=== PATIENT | male | born 1940 | race Caucasian/White ===

== ENCOUNTER 2019-02-07 11:04 | Outpatient (RCR) | payer OTHER, SELFPAY ==
--- NOTE | 2019-02-07 13:45 | ST.OPIE ---
Provider Information Visit Care Team Role Provider Type Yusuf David Attending Provider Non-Staff Specialty: Medical Address: [address] [place] [address], [place], [address] Email: Speech-Language Pathology Initial Evaluation ELL TUTOR Voice Resonance Evaluation Start: 02/07/19 13:15 Freq: Status: Active Protocol: Document 02/07/19 13:15 LNK (Rec: 02/07/19 13:41 LNK [id number]) Voice and Resonance Assessment Session Time Visit Start Time 11:30 Visit Stop Time 12:30 Total Visit Minutes 60 Visit Information Insurance Information [facility] Choice/ Next Note Type Next Note Type Re-Evaluation Referral Referring Physician Dr. Yusuf David Reason for Referral hoarseness Setting Setting Outpatient Care Patient History General Information Pt is a 78 year old male who presented for a vocal assessment. He has a history of 50 year smoking 1-2 packs of cigarettes a day. Pt reported that he has not seen a physician in over 50 years. He was accompanied to this evaluation by his sister, Amparo Styles. Both the pt and his sister noted that the pt's voice became very hoarse approximately 6 months ago. She had been encouraging the pt to get an assessment for several months. Previous Therapy Previous Speech-Language Therapy No Oral Motor Assessment Source: [employer] ([facility]). Oral-Motor Assessment informal OM examination indicated missing teeth, but other structures appeared to be WFL. - Laryngeal Performance S/Z Ratio Reduced Laryngeal Function Relative to Yes: Pt unable to sustain Respiration phonation longer that 5-6 seconds Maximum Phonation Time MPT Norms: Women (15-25) Men (25-35) Loudness (50-60 dB); Speaking Rate: Oral Reading of Sentences (190 Words Per Minute); Oral Reading of Paragraphs (160-170 WPM); Speaking Rate in Conversation (150-250 WPM) Maximum Phonation Time 6.2 Maximum Phonation Time Reduced Jitter/Shimmer Norms: Jitter (Less than or equal to 1.040% - Frequency) Norms: Shimmer (Less than or equal to 3.810% - Amplitude) Jitter 9.8 Shimmer 27.8 Voice Pitch Range Norms: Women (100-300 Hz) Men (70-250 Hz) Fundamental Frequency Norms: Women (Mean: 225 Hz; Range: 155-334 Hz) Men ( Mean: 128 Hz; Range: 85-196 Hz) Voice Pitch Severely Low Voice Loudness Moderately Loud Voice Phonatory-based Quality Strident Loss of Voice Fundamental Frequency unable to assess. Minimal to no phonatory quality Paradoxical Vocal Fold Movement No Indications Findings Findings Severe Impairment Observations Pt presented with a severely disordered vocal quality, air support for voicing, and significantly disordered vocal fold vibration he had no phonatory quality. His voice was like s low growl. The pt had seen Dr. David via telemedical visit with the MA. Dr. David recommended that the pt see an ENT to rule out malignancy. Instead he was referred fro voice evaluation. This ELL TUTOR strongly recommends that the pt be referred to an ENT MABLE in order to determine the nature of the pt's vocal system snd to r/o malignancy. Prognosis Rehabilitation Potential Fair - Recommendations Treatment Recommended No: Pt needs to see ENT before treatment can be determined Referrals Referrals ENT Patient/Caregiver Education Patient/Family Education Described results of evaluation Patient Understanding Family Understanding Vocally Abusive Behavior Behavior Rating Smoking Always
--- NOTE | 2019-04-05 16:27 | ST.OPDS ---
Care Team Visit Care Team Role Provider Type Yusuf David Attending Provider Non-Staff Address: [address] [place] [address], [place], [address] [facility]TACT CENTER SPECIALIST Treatment Note CONTACT CENTER SPECIALIST Treatment Note Start: 02/07/19 13:15 Freq: Status: Active Protocol: Document 04/05/19 16:23 LNK (Rec: 04/05/19 16:26 LNK [id number]) Speech Pathology Treatment Note Visit Type Note Type Discharge Summary General Information General Information Pt is a 78 year old male whe presented for a vocal assessment. He has a history of 50 year smoking 1-2 packs of cigarettes a day. Pt reported that he has not seen a physician in over 50 years. He was accompanied to this evaluation by his sister, Amparo Styles. Both the pt and his sister noted that the pt's voice became very hoarse approximately 6 months ago. She had been encouraging the pt to get an assessment for several months. [ E Subjective Observations/Patient Presentation Pt presented with a severely disordered vocal quality, air support vor voicing, and significantly disordered vocal fold vibration he had no phonatory quality. His voice was like s low growl. The pt had seen Dr. David via telemedical visit with the [place]. Dr. David recommended that the pt see an ENT to rule out malignancy. Insted he was referred fro voice evaluation. This CONTACT CENTER SPECIALIST strongly recommends that the pt be referred to an ENT MABLE in order to determine the nature of the pt's vocal system snd to r/o malignancy. [ End ] Chief Complaint(s) Voice Assessment Assessment of Improvement pt was not seen for therapy following the initial evaluation. Plan Therapy Recommendations Discharge from Speech Therapy
== END 2019-02-08 12:08 ==
LOC: SP 11:04
PROVIDERS: Visit Provider Registered Nurse
DX: R49.0 Dysphonia (principal)
CPT/HCPCS: 92524

== ENCOUNTER 2019-02-11 09:22 | Emergency (ER) | payer MEDICARE, SELFPAY ==
[2019-02-11 09:30] VITALS: BP 143/55; PULSE 61; RESP 22; TEMP 36.4; O2SAT 99; BMI 25.1
--- NOTE | 2019-02-11 10:22 | DI.RAD.S_ITS ---
PROCEDURE: XR CHEST 2V INDICATIONS: voice changes, fullness in neck, gradual, wheezing TECHNIQUE: 2 views of the chest were acquired. COMPARISON: None. FINDINGS: Surgical changes and devices: None. Lungs and pleura: Lungs are clear. No pleural effusions or pneumothorax. Mediastinum: Mediastinal contours are normal. Heart size is normal. Bones and chest wall: No suspicious bony abnormalities. Soft tissues appear unremarkable. IMPRESSION: No acute cardiopulmonary findings. Dictated by: Eden Fuentes M.D. on 02/11/2019 at 11:04 Approved by: Eden Fuentes M.D. on 02/11/2019 at 11:04
--- NOTE | 2019-02-11 10:24 | ED.SOB ---
HPI - SOB/Dyspnea General Chief Complaint: Shortness of Breath/Dyspnea Stated Complaint: Throat is closing up on him,wheezing Time Seen by Provider: 02/11/19 10:06 Source: patient and family (Sister) Mode of arrival: ambulatory Limitations: no limitations History of Present Illness This is a 78-year-old male comes to the emergency department with complaint of his throat feeling like it will sometimes close up, he will be wheezing. Patient states that his voice has been hoarse, it has been a gradual onset. There was not a sudden abrupt onset. It has been like that for months to a year. He does state there feels like there is a fullness or something in there. He does not have any difficulty with swallowing food or liquids. He states sometimes he will feel more short of breath or like his throat is closing off if he lays back. Patient states that sometimes he will feel sort of wheezy. He feels like it is more up in his throat although sometimes a little bit in his upper chest. Patient was also complaining of little bit ear pain for 2 weeks, he has been putting some ear drops in it. Patient is not having any other chest pain, no dizziness, no passing out, no nausea, no vomiting, no other GI or urinary symptoms. He has not had any weight loss. He does have a strong family history of his mom dying from cancer on his vocal cords , and his father had a cancer that required removal of his nose. Related Data Allergies Allergy/AdvReac Type Severity Reaction Status Date / Time pollen extracts AdvReac Mild Verified 11/12/18 13:09 Review of Systems Review of Systems ROS Unobtainable: All systems reviewed & are unremarkable except as noted in HPI and below Constitutional Denies chills, Denies fever(s), Denies headache(s), Denies lethargy, Denies night sweats, Denies poor appetite, Denies weakness and Denies weight loss ENT Ears, Nose, Mouth, and Throat: Reports as per HPI, Denies dental pain, Denies dizziness, Denies ear discharge, Reports otalgia (right ear, on abx drops), Denies headache(s), Reports hoarseness, Denies mouth lesions, Denies mouth pain, Denies nasal congestion, Reports neck mass (fullness, no mass), Denies neck pain, Denies odynophagia, Denies sore throat, Denies throat swelling, Denies tongue swelling and Reports other (wheezing feels like from throat.) Cardiovascular Denies chest pain, Denies syncope, Denies edema, Denies irregular heart rhythm, Denies lightheadedness, Denies palpitations, Denies dyspnea on exertion and Denies orthopnea Respiratory Denies change in phlegm color, Denies chest congestion, Denies cough, Denies excessive phlegm production, Denies pain on inspiration, Denies pain with cough, Denies dyspnea on exertion, Reports stridor and Denies wheezing Gastrointestinal Gastrointestinal: Denies abdominal pain, Denies melena, Denies hematochezia, Denies diarrhea, Denies nausea, Denies odynophagia and Denies vomiting Genitourinary Denies hematuria, Denies dysuria, Denies flank pain, Denies urinary frequency and Denies urinary urgency Musculoskeletal Denies neck pain Integumentary/Breasts Denies rash Neurologic Denies dizziness, Denies syncope, Denies headache(s) and Denies weakness Endocrine Denies palpitations Allergic/Immunologic Denies throat swelling, Denies tongue swelling and Denies wheezing PFSH Social History Smoking Status: Former smoker Family History Mother No problems noted. Father No problems noted. Social History Smoking Status: Former smoker Exam Narrative Exam Narrative: GEN: well nourished, well appearing male, alert and oriented x 3, patient appears to be in no acute distress. HEENT: Atraumatic, pupils are equal round reactive to light, extraocular movements are intact, nares are clear, TMs are clear with no fluid on the left, right has a small amount of left over cotton, unable to visualize the TM but canal appears normal, there is no conjunctival pallor. Throat is clear without any exudates, erythema, tonsillar enlargement or uvular deviation, no obvious visualize neck masses, patient does have a hoarse gravelly voice, he did remove his dentures and does not have any changes to the soft palate or other tissue changes. Patient handling secretions without issue. HEART: Regular rate and rhythm without murmur, clicks, rubs. LUNGS:Lungs clear to auscultation, no wheezes, rales, crackles, chest moves symmetrically, no wheezing, no stridor try potting. ABD:bowel sounds normal, soft, non-tender, no guarding, rebound, rigidity, no masses noted, no hepatosplenomegaly MSCL: Non-tender, no muscle atrophy, muscles strength 5/5 upper and lower extremities, full range of motion, normal gait NEURO:CN 2-12 intact, sensation normal Initial Vital Signs Initial Vital Signs: Vital Signs Temperature 97.6 F 02/11/19 09:30 Pulse Rate 61 02/11/19 09:30 Respiratory Rate 22 02/11/19 09:30 Blood Pressure 143/55 H 02/11/19 09:30 Pulse Oximetry 99 02/11/19 09:30 Course Orders Ordered: ED Orders 02/11/19 10:44 CT soft tissue neck w con Stat Vital Signs - 8 hr 02/11/19 12:01 Pulse Rate 63 Respiratory Rate 17 Blood Pressure [Left Arm] 138/70 Pulse Oximetry 100 MDM - SOB/Dyspnea Lab Data Attestation: I reviewed the patient's lab results. Result diagrams: 02/11/19 09:30 02/11/19 09:30 Lab Results 02/11/19 02/11/19 Range/Units 09:30 09:30 WBC 8.8 (4.5-11.0) X10^3/uL RBC 4.83 (4.5-5.9) X10^6/uL Hgb 14.7 (13.5-17.5) g/dL Hct 43.4 (41-53) % MCV 89.9 (80-100) fL MCH 30.4 (26-34) PG MCHC 33.8 (30-36) % RDW 14.3 (11.6-14.8) % Plt Count 229 (150-400) X10^3/uL Neut % (Auto) 56.4 (50-75) % Lymph % (Auto) 33.0 (25-40) % [place] % (Auto) 7.9 (3-14) % Eos % (Auto) 1.0 L (2-4) % Baso % (Auto) 1.7 (0-2) % Neut # (Auto) 4900 (0978-4275) /uL Lymph # (Auto) 2900 (6590-1849) /uL [place] # (Auto) 700 (0-900) /uL Eos # (Auto) 100 (0-450) /uL Baso # (Auto) 200 H (0-100) /uL Sodium 142 (137-145) mmol/L Potassium 3.9 (3.4-5.1) mmol/L Chloride 103 (98-107) mmol/L Carbon Dioxide 30 (22-32) mmol/L BUN 13 (9-20) mg/dL Creatinine 1.00 (0.66-1.25) mg/dL Estimated GFR > 60.0 (>60) mL/min BUN/Creatinine Ratio 13.0 (6-22) Glucose 91 (80-110) mg/dL Calcium 9.5 (8.4-10.2) mg/dL Imaging Data CT neck soft tissue: Radiologist's impression: Joon Ervin 78 M 1940 [place] [address] CT Scan Report Signed Patient: Joon Ervin WMR#: [id number] : 1940cct:[id number] Age/Sex: 78 / MDate of Service: 02/11/19 Loc: ED Accession Number: [id number] Procedure: CT soft tissue neck w con Ordering Provider: Lucie Mota D.O. PROCEDURE: CT SOFT TISSUE NECK W CON INDICATIONS: voice change, hoarse, wheeze, fullness neck TECHNIQUE: After the administration of intravenous contrast, 3.0 mm axial sections acquired from the skull base to the upper chest. Additional 1.5 mm axial sections acquired through the true vocal cords. 1 mm thick coronal reformats were generated. For radiation dose reduction, the following was used: automated exposure control. COMPARISON: None. FINDINGS: Image quality: Excellent. 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 There is associated destruction of the arytenoid cartilage to the right of midline. There is narrowing and deviation of the airway to the left. The mass measures approximately 3.7 x 1.8 x 2.6 cm. No other neck masses. Lymph nodes: No enlarged lymph nodes seen throughout the neck. 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 Other vessels are widely patent. Glands: The parotid and submandibular glands appear normal. Thyroid gland is unremarkable. Miscellaneous: Visualized brain and orbits appear unremarkable. Lung apices appear clear. Superficial soft tissues appear normal. Bones: No suspicious bony lesions. Visualized sinuses and mastoids appear unremarkable. IMPRESSION: 1. 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 2. No evidence of lymphadenopathy. Comment: Lines were discussed with Dr. Mota of the emergency department at time of study dictation. Dictated by: Jung Orozco M.D. on 02/11/2019 at 11:00 Approved by: Jung Orozco M.D. on 02/11/2019 at 11:17 Chest x-ray: Radiologist's impression: [place] [address] XRay Report Signed Patient: Joon Ervin WMR#: [id number] : 3Acct:[id number] Age/Sex: 78 / MDate of Service: 02/11/19 Loc: ED Accession Number: [id number] Procedure: XR chest 2V Ordering Provider: Lucie Mota D.O. PROCEDURE: XR CHEST 2V INDICATIONS: voice changes, fullness in neck, gradual, wheezing TECHNIQUE: 2 views of the chest were acquired. COMPARISON: None. FINDINGS: Surgical changes and devices: None. Lungs and pleura: Lungs are clear. No pleural effusions or pneumothorax. Mediastinum: Mediastinal contours are normal. Heart size is normal. Bones and chest wall: No suspicious bony abnormalities. Soft tissues appear unremarkable. IMPRESSION: No acute cardiopulmonary findings. Dictated by: Eden Fuentes M.D. on 02/11/2019 at 11:04 Approved by: Eden Fuentes M.D. on 02/11/2019 at 11:04 [facility] Narrative Medical decision making narrative: Based on patient's history did get a chest x-ray but also discussed doing a CT of the neck is patient has had slowly increasing hoarseness with no acute onset. Discussed potential for cancer although other causes such as vocal cord dysfunction or other nerve, neurologic issues could be at play. By patient's description he does not any difficulty with swallowing or GI issues so I suspect it is more related to his airway. Spoke with Dr. Ghassan Raman/Jin, he would like to see patient this week. Set up with office staff so patient can have appointment scheduled. I s Discharge Plan Departure Patient Disposition: Home Clinical Impression: Laryngeal mass, Hoarseness of voice Discharge Date/Time: 02/11/19 12:21 Interventions: ED Discharge Assessment Last Done: 02/11/19 12:21 Instructions: Laryngeal Cancer Activity Restrictions/Additional Instructions: Follow up at your scheduled appointment on02/17/19 at 10:[address] Raman at [address] [place] [address] in [place] with the ENT (ears, nose, throat) surgeon. I also recommend that he get set up with a dedicated primary care physician, the health human resources operations specialist number is [phone] it can help me find a primary care physician Continue with smoking cessation. Return to the ER if you are having fevers greater than 100.4 F new stridor, difficulty breathing, wheezing, if you are having any difficulty swallowing, lightheadedness, passing out, shortness of breath or other new or concerning symptoms. Referrals: Allan Raman MD [Physician] -
[2019-02-11 10:32] LABS: Add Manual Diff / Slide Review NO; Basophils Absolute Auto 200 /uL (0-100); Basophils Percent Auto 1.7 % (0-2); Eosinophils Absolute Auto 100 /uL (0-450); Hematocrit 43.4 % (41-53); Hemoglobin 14.7 g/dL (13.5-17.5); Lymphocytes Absolute Auto 2900 /uL (1100-4500); Mean Corpuscular HGB Conc 33.8 % (30-36); Mean Corpuscular Hemoglobin 30.4 PG (26-34); Mean Corpuscular Volume 89.9 fL (80-100); Monocytes Absolute Auto 700 /uL (0-900); Monocytes Percent Auto 7.9 % (3-14); Neutrophils Absolute Auto 4900 /uL (1500-7000); Neutrophils Percent Auto 56.4 % (50-75); Platelet Count 229 X10^3/uL (150-400); Red Blood Cell Count 4.83 X10^6/uL (4.5-5.9); Red Cell Distribution Width 14.3 % (11.6-14.8); White Blood Cell Count 8.8 X10^3/uL (4.5-11.0)
--- NOTE | 2019-02-11 10:33 | ED_ITS ---
HPI - SOB/Dyspnea General Chief Complaint: Shortness of Breath/Dyspnea Stated Complaint: Throat is closing up on him,wheezing Time Seen by Provider: 02/11/19 10:06 Source: patient and family (Sister) Mode of arrival: ambulatory Limitations: no limitations History of Present Illness This is a 78-year-old male comes to the emergency department with complaint of his throat feeling like it will sometimes close up, he will be wheezing. Patie nt states that his voice has been hoarse, it has been a gradual onset. There was not a sudden abrupt onset. It has been like that for months to a year. He does state there feels like there is a fullness or something in there. He does not have any difficulty with swallowing food or liquids. He states sometimes he will feel more short of breath or like his throat is closing off if he lays back. Patient states that sometimes he will feel sort of wheezy. He feels like it is more up in his throat although sometimes a little bit in his upper chest. Patient was also complaining of little bit ear pain for 2 weeks, he has been putting some ear drops in it. Patient is not having any other chest pain, no dizziness, no passing out, no nausea, no vomiting, no other GI or urinary symptoms. He has not had any weight loss. He does have a strong family history of his mom dying from cancer on his vocal cords , and his father had a cancer that required removal of his nose. Related Data Allergies Allergy/AdvReac Type Severity Reaction Status Date / Time pollen extracts AdvReac Mild Verified 11/12/18 13:09 Review of Systems Review of Systems ROS Unobtainable: All systems reviewed & are unremarkable except as noted in HPI and below Constitutional Denies chills, Denies fever(s), Denies headache(s), Denies lethargy, Denies night sweats, Denies poor appetite, Denies weakness and Denies weight loss ENT Ears, Nose, Mouth, and Throat: Reports as per HPI, Denies dental pain, Denies dizziness, Denies ear discharge, Reports otalgia (right ear, on abx drops), Denies headache(s), Reports hoarseness, Denies mouth lesions, Denies mouth pain, Denies nasal congestion, Reports neck mass (fullness, no mass), Denies neck pain, Denies odynophagia, Denies sore throat, Denies throat swelling, Denies ton jimmie swelling and Reports other (wheezing feels like from throat.) Cardiovascular Denies chest pain, Denies syncope, Denies edema, Denies irregular heart rhythm, Denies lightheadedness, Denies palpitations, Denies dyspnea on exertion and Denies orthopnea Respiratory Denies change in phlegm color, Denies chest congestion, Denies cough, Denies excessive phlegm production, Denies pain on inspiration, Denies pain with cough, Denies dyspnea on exertion, Reports stridor and Denies wheezing Gastrointestinal Gastrointestinal: Denies abdominal pain, Denies melena, Denies hematochezia, Den ies diarrhea, Denies nausea, Denies odynophagia and Denies vomiting Genitourinary Denies hematuria, Denies dysuria, Denies flank pain, Denies urinary frequency and Denies urinary urgency Musculoskeletal Denies neck pain Integumentary/Breasts Denies rash Neurologic Denies dizziness, Denies syncope, Denies headache(s) and Denies weakness Endocrine Denies palpitations Allergic/Immunologic Denies throat swelling, Denies tongue swelling and Denies wheezing PFSH Social History Smoking Status: Former smoker Family History Mother No problems noted. Father No problems noted. Social History Smoking Status: Former smoker Exam Narrative Exam Narrative: GEN: well nourished, well appearing male, alert and oriented x 3, patient appears to be in no acute distress. HEENT: Atraumatic, pupils are equal round reactive to light, extraocular movements are intact, nares are clear, TMs are clear with no fluid on the left, right has a small amount of left over cotton, unable to visualize the TM but canal appears normal, there is no conjunctival pallor. Throat is clear without any exudates, erythema, tonsillar enlargement or uvular deviation, no obvious visualize neck masses, patient does have a hoarse gravelly voice, he did remove his dentures and does not have any changes to the soft palate or other tissue changes. Patient handling secretions without issue. HEART: Regular rate and rhythm without murmur, clicks, rubs. LUNGS:Lungs clear to auscultation, no wheezes, rales, crackles, chest moves symmetrically, no wheezing, no stridor try potting. ABD:bowel sounds normal, soft, non-tender, no guarding, rebound, rigidity, no masses noted, no hepatosplenomegaly MSCL: Non-tender, no muscle atrophy, muscles strength 5/5 upper and lower extremities, full range of motion, normal gait NEURO:CN 2-12 intact, sensation normal Initial Vital Signs Initial Vital Signs: Vital Signs Temperature 97.6 F 02/11/19 09:30 Pulse Rate 61 02/11/19 09:30 Respiratory Rate 22 02/11/19 09:30 Blood Pressure 143/55 H 02/11/19 09:30 Pulse Oximetry 99 02/11/19 09:30 Course Orders Ordered: ED Orders 02/11/19 10:44 CT soft tissue neck w con Stat Vital Signs - 8 hr 02/11/19 12:01 Pulse Rate 63 Respiratory Rate 17 Blood Pressure [Left Arm] 138/70 Pulse Oximetry 100 MDM - SOB/Dyspnea Lab Data Attestation: I reviewed the patient's lab results. Result diagrams: 02/11/19 09:30 02/11/19 09:30 Lab Results 02/11/19 02/11/19 Range/Units 09:30 09:30 WBC 8.8 (4.5-11.0) X10^3/uL RBC 4.83 (4.5-5.9) X10^6/uL Hgb 14.7 (13.5-17.5) g/dL Hct 43.4 (41-53) % MCV 89.9 (80-100) fL MCH 30.4 (26-34) PG MCHC 33.8 (30-36) % RDW 14.3 (11.6-14.8) % Plt Count 229 (150-400) X10^3/uL Neut % (Auto) 56.4 (50-75) % Lymph % (Auto) 33.0 (25-40) % Cross % (Auto) 7.9 (3-14) % Eos % (Auto) 1.0 L (2-4) % Baso % (Auto) 1.7 (0-2) % Neut # (Auto) 4900 (1262-9227) /uL Lymph # (Auto) 2900 (2954-8302) /uL Cross # (Auto) 700 (0-900) /uL Eos # (Auto) 100 (0-450) /uL Baso # (Auto) 200 H (0-100) /uL Sodium 142 (137-145) mmol/L Potassium 3.9 (3.4-5.1) mmol/L Chloride 103 (98-107) mmol/L Carbon Dioxide 30 (22-32) mmol/L BUN 13 (9-20) mg/dL Creatinine 1.00 (0.66-1.25) mg/dL Estimated GFR > 60.0 (>60) mL/min BUN/Creatinine Ratio 13.0 (6-22) Glucose 91 (80-110) mg/dL Calcium 9.5 (8.4-10.2) mg/dL Imaging Data CT neck soft tissue: Radiologist's impression: Joon Ervin 78 M 1940 [place] [address] CT Scan Report Signed Patient: Joon Ervin WMR#: [id number] : [id number]:[id number] Age/Sex: 78 / MDate of Service: 02/11/19 Loc: ED Accession Number: [id number] Procedure: CT soft tissue neck w con Ordering Provider: Lucie Mota D.O. PROCEDURE: CT SOFT TISSUE NECK W CON INDICATIONS: voice change, hoarse, wheeze, fullness neck TECHNIQUE: After the administration of intravenous contrast, 3.0 mm axial sections acquired from the skull base to the upper chest. Additional 1.5 mm axial sections acquired through the true vocal cords. 1 mm thick coronal reformats were generated. For radiation dose reduction, the following was used: automated exposure control. COMPARISON: None. FINDINGS: Image quality: Excellent. 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 There is associated destruction of the arytenoid cartilage to the right of midline. There is narrowing and deviation of the airway to the left. The mass measures approximately 3.7 x 1.8 x 2.6 cm. No other neck masses. Lymph nodes: No enlarged lymph nodes seen throughout the neck. 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 Other vessels are widely patent. Glands: The parotid and submandibular glands appear normal. Thyroid gland is unremarkable. Miscellaneous: Visualized brain and orbits appear unremarkable. Lung apices appear clear. Superficial soft tissues appear normal. Bones: No suspicious bony lesions. Visualized sinuses and mastoids appear unremarkable. IMPRESSION: 1. 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 2. No evidence of lymphadenopathy. Comment: Lines were discussed with Dr. Mota of the emergency department at time of study dictation. Dictated by: Jung Orozco M.D. on 02/11/2019 at 11:00 Approved by: Jung Orozco M.D. on 02/11/2019 at 11:17 Chest x-ray: Radiologist's impression: [address] [address] XRay Report Signed Patient: Joon Ervin WMR#: [id number] : 3Acct:[id number] Age/Sex: 78 / MDate of Service: 02/11/19 Loc: ED Accession Number: [id number] Procedure: XR chest 2V Ordering Provider: Lucie Mota D.O. PROCEDURE: XR CHEST 2V INDICATIONS: voice changes, fullness in neck, gradual, wheezing TECHNIQUE: 2 views of the chest were acquired. COMPARISON: None. FINDINGS: Surgical changes and devices: None. Lungs and pleura: Lungs are clear. No pleural effusions or pneumothorax. Mediastinum: Mediastinal contours are normal. Heart size is normal. Bones and chest wall: No suspicious bony abnormalities. Soft tissues appear unremarkable. IMPRESSION: No acute cardiopulmonary findings. Dictated by: Eden Fuentes M.D. on 02/11/2019 at 11:04 Approved by: Eden Fuentes M.D. on 02/11/2019 at 11:04 [facility] Narrative Medical decision making narrative: Based on patient's history did get a chest x- ray but also discussed doing a CT of the neck is patient has had slowly increasing hoarseness with no acute onset. Discussed potential for cancer although other causes such as vocal cord dysfunction or other nerve, neurologic issues could be at play. By patient's description he does not any difficulty with swallowing or GI issues so I suspect it is more related to his airway. Spoke with Dr. Ghassan Raman/Jin, he would like to see patient this week. Set up with office staff so patient can have appointment scheduled. I s Discharge Plan Departure Patient Disposition: Home Clinical Impression: Laryngeal mass, Hoarseness of voice Discharge Date/Time: 02/11/19 12:21 Interventions: ED Discharge Assessment Last Done: 02/11/19 12:21 Instructions: Laryngeal Cancer Activity Restrictions/Additional Instructions: Follow up at your scheduled appointment on02/17/19 at 10:[address] Raman at [address] [place] [address] in [place] with the ENT (ears, nose, throat) surgeon. I also recommend that he get set up with a dedicated primary care physician, the health resource director number is [phone] it can help me find a primary care physician Continue with smoking cessation. Return to the ER if you are having fevers greater than 100.4 F new stridor, difficulty breathing, wheezing, if you are having any difficulty swallowing, lightheadedness, passing out, shortness of breath or other new or concerning symptoms. Referrals: Allan Raman MD [Physician] -
[2019-02-11 10:38] LABS: Blood Urea Nitrogen 13 mg/dL (9-20); Calcium 9.5 mg/dL (8.4-10.2); Carbon Dioxide 30 mmol/L (22-32); Chloride 103 mmol/L (98-107); Estimated Glomerular Filt Rate > 60.0 mL/min (>60); Glucose 91 mg/dL (80-110); HEMOLYSIS < 15 (0-50); Potassium 3.9 mmol/L (3.4-5.1); Sodium 142 mmol/L (137-145)
--- NOTE | 2019-02-11 10:44 | DI.CT.S_ITS ---
PROCEDURE: CT SOFT TISSUE NECK W CON INDICATIONS: voice change, hoarse, wheeze, fullness neck TECHNIQUE: After the administration of intravenous contrast, 3.0 mm axial sections acquired from the skull base to the upper chest. Additional 1.5 mm axial sections acquired through the true vocal cords. 1 mm thick coronal reformats were generated. For radiation dose reduction, the following was used: automated exposure control. COMPARISON: None. FINDINGS: Image quality: Excellent. 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 There is associated destruction of the arytenoid cartilage to the right of midline. There is narrowing and deviation of the airway to the left. The mass measures approximately 3.7 x 1.8 x 2.6 cm. No other neck masses. Lymph nodes: No enlarged lymph nodes seen throughout the neck. 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 Other vessels are widely patent. Glands: The parotid and submandibular glands appear normal. Thyroid gland is unremarkable. Miscellaneous: Visualized brain and orbits appear unremarkable. Lung apices appear clear. Superficial soft tissues appear normal. Bones: No suspicious bony lesions. Visualized sinuses and mastoids appear unremarkable. IMPRESSION: 1. 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 2. No evidence of lymphadenopathy. Comment: Lines were discussed with Dr. Mota of the emergency department at time of study dictation. Dictated by: Jung Orozco M.D. on 02/11/2019 at 11:00 Approved by: Jung Orozco M.D. on 02/11/2019 at 11:17
[2019-02-11 11:00] VITALS: BP 128/91; PULSE 55; RESP 14; O2SAT 100
[2019-02-11 12:01] VITALS: BP 138/70; PULSE 63; RESP 17; O2SAT 100
== END 2019-02-11 12:21 | disposition home or self-care (01) ==
PROVIDERS: Emergency Provider Emergency Medicine
DX: J38.7 Other diseases of larynx (principal); R49.0 Dysphonia; H92.09 Otalgia, unspecified ear; R06.02 Shortness of breath
CPT/HCPCS: 36591; 70491; 71046; 80048; 85025; 99283; 99284; Q9967

== ENCOUNTER 2019-11-06 10:25 | Emergency (ER) | payer MEDICARE, OTHER, SELFPAY ==
[2019-11-06 10:32] VITALS: BP 137/70; PULSE 107; RESP 24; TEMP 37; O2SAT 100
--- NOTE | 2019-11-06 10:36 | ED.SOB ---
HPI - SOB/Dyspnea General Chief Complaint: Shortness of Breath/Dyspnea Stated Complaint: problems breathing Time Seen by Provider: 11/06/19 10:36 Source: family Mode of arrival: Ambulatory Limitations: no limitations History of Present Illness HPI Narrative: This is a 78-year-old male who comes in with complaint of difficulty breathing. Patient states it's been sort of slowly worsening over time. Patient came in today because he just appreciated at more. Patient had a laryngeal mass which was removed by Dr. Castellanos at [facility]. He had radiation followed by chemotherapy which he is still pursuing. Continues to follow with ENT locally with Dr. Raman. Patient states he was seen 2 days ago and told that he was doing well. They did not use video or image through the trach site. Patient had a trach in place after his surgery it fell out after some period of time and he has been without 1 for several months. He does have granulation tissue which has not been changing according to family. He has not appreciated any bleeding or other changes. He denies fevers. He denies any upper respiratory congestion. He states he felt a little congested in his chest he also vomits frequently secondary to his chemotherapy and did have some emesis today. Patient at home put a straw in place of his trach site and states that was a little bit helpful. He denies any chest pain or shortness of breath in his chest. Denies any other symptoms. Patient does not currently smoke. 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 Father No problems noted. Social History Smoking Status: Former smoker Smoking Status: Former smoker Substance Use Type: does not use Exam Narrative Exam Narrative: GEN: well nourished, well appearing male, alert and oriented x 3, patient appears to be in mild distress. HEENT: Atraumatic, pupils are equal round reactive to light, extraocular movements are intact, nares are clear, TMs are clear with no fluid, there is no conjunctival pallor. Throat is clear without any exudates, erythema, tonsillar enlargement or uvular deviation, patient has a tracheostomy stoma that is open, patient is moving air throughout. Initially he had a bright orange trough through the stoma site but this was removed. Patient does have significant granulation tissue there does not appear to be necrosis. No bleeding at this site. Patient has not had any productive sputum while in the room. HEART: Regular rate and rhythm without murmur, clicks, rubs. LUNGS:Lungs clear to auscultation, no wheezes, rales, crackles, chest moves symmetrically ABD:bowel sounds normal, soft, non-tender, no guarding, rebound, rigidity, no masses noted, no hepatosplenomegaly MSCL: full range of motion, normal gait NEURO:CN 2-12 intact. Initial Vital Signs Initial Vital Signs: Vital Signs Temperature 98.6 F 11/06/19 10:32 Pulse Rate 107 H 11/06/19 10:32 Respiratory Rate 24 11/06/19 10:32 Blood Pressure 137/70 11/06/19 10:32 Pulse Oximetry 100 11/06/19 10:32 Course Orders Ordered: ED Orders 11/06/19 10:45 Consult to Respiratory Therapy Evaluate & Treat 11/06/19 10:55 Basic Metabolic Panel Stat Complete Blood Count AUTO DIFF Stat Magnesium Stat Procalcitonin Stat Discontinued Medications Dexamethasone (Decadron) 10 mg IV NOW ONE Stop: 11/06/19 10:49 Last Admin: 11/06/19 11:04 Dose: 10 mg Documented by: SHRUTHI Epinephrine (Epinephrine Racemic) 0.5 ml INH NOW ONE Stop: 11/06/19 11:17 Sodium Chloride (Normal Saline 0.9%) 1,000 mls @ 150 mls/hr IV CONT JUAN Last Infusion: 11/06/19 12:30 Dose: 0 mls/hr Documented by: Admin: 11/06/19 11:04 Dose: 150 mls/hr Documented by: SHRUTHI Tranexamic Acid (Cyklokapron) 2,000 mg INJ INTRA-OP ONE Stop: 11/06/19 10:48 Vital Signs Vital signs: Vital Signs - 8 hr 11/06/19 10:32 11/06/19 11:01 11/06/19 11:30 Temperature 98.6 F Pulse Rate 107 H 87 98 H Respiratory Rate 24 24 25 H Blood Pressure 137/70 Blood Pressure [Left Arm] 116/66 Pulse Oximetry 100 100 99 11/06/19 11:50 11/06/19 12:00 11/06/19 12:36 Temperature Pulse Rate 130 H 83 Respiratory Rate 14 19 Blood Pressure Blood Pressure [Left Arm] 111/63 Pulse Oximetry 100 100 100 MDM - SOB/Dyspnea Lab Data Attestation: I reviewed the patient's lab results. Result diagrams: 11/06/19 10:55 11/06/19 10:55 Labs: Lab Results 11/06/19 11/06/19 11/06/19 Range/Units 10:55 10:55 10:55 WBC 11.9 H (4.5-11.0) X10^3/uL RBC 4.01 L (4.5-5.9) X10^6/uL Hgb 11.8 L (13.5-17.5) g/dL Hct 35.7 L (41-53) % MCV 89.0 (80-100) fL MCH 29.5 (26-34) PG MCHC 33.2 (30-36) % RDW 14.6 (11.6-14.8) % Plt Count 287 (150-400) X10^3/uL Neut % (Auto) 91.9 H (50-75) % Lymph % (Auto) 3.9 L (25-40) % [place] % (Auto) 3.2 (3-14) % Eos % (Auto) 0.3 L (2-4) % Baso % (Auto) 0.7 (0-2) % Neut # (Auto) 21239 H (3342-2445) /uL Lymph # (Auto) 500 L (3288-3418) /uL [place] # (Auto) 400 (0-900) /uL Eos # (Auto) 0 (0-450) /uL Baso # (Auto) 100 (0-100) /uL Sodium 142 (137-145) mmol/L Potassium 4.1 (3.4-5.1) mmol/L Chloride 103 (98-107) mmol/L Carbon Dioxide 25 (22-32) mmol/L BUN 17 (9-20) mg/dL Creatinine 1.50 H (0.66-1.25) mg/dL Estimated GFR 45.5 L (>60) mL/min BUN/Creatinine Ratio 11.3 (6-22) Glucose 165 H (80-110) mg/dL Calcium 9.6 (8.4-10.2) mg/dL Magnesium 1.9 (1.6-2.3) mg/dL Procalcitonin 0.06 (<0.5) ng/mL MDM Narrative Medical decision making narrative: Patient arrived we did attempt to suction and were not able to pass a catheter. Patient has a straw that was removed and that he placed himself. He has been moving air with appropriate oxygenation he has been slightly tachycardic in the low 100 range. Patient is able to lay flat in the with minimal issue. I spoke with Dr. Crawford and he does not recommend attempting to place a trach or any airway at this time if patient is able to sat okay seems minimally uncomfortable without a rapid increase in symptoms he could potentially see ENT tomorrow morning at 7:30 a.m either here or in [facility]. He did agree that steroids would be appropriate for this patient. Patient was having some increase in difficulty breathing with retractions, he was given some racemic epinephrine and patient brought up and coughed/suctioned out a large plug that's about 2 inches in length and a half inch in thickness that appears to have been obstructing his stoma. Patient had much improvement afterwards. Also contacted patient's surgeon at [facility] Dr. Castellanos was unavailable but I did speak with Dr. Bridges, he asked for a picture of the site and while we were discussing patient brought up a very large mucus plug. We did discuss that if he needed an airway an uncuffed 4-6 sized trach tube would be the best option in the future. He does not have any airway access from above because it was a laryngectomy. Imaging was reviewed and states it does look patent now and evaluation by myself it does look much improved and I agree. Dr. Birdges does not feel the patient needs any further imaging today. He would be happy for them to see the patient in the office at 1:00 p.m. tomorrow the office will reach out to the patient to confirm. Also feels the patient does not need airway placed at this time. And that if patient is continuing to tolerate without issue he can continue as is. Recontacted Dr. Crawford, he is trying to get some addtional information. Spoke with Dr. Bridges from surgery at [facility]. Picture of the trach site was sent and while we were discussing patient brought a very large mucus plug. Patient immediately had improvement and feels significantly better. Patient's labs show an increase in his creatinine from February 2019 but patient was already aware this and states they've been monitoring closely. Rest of his labs show no acute findings. After patient had his large mucus plug out he feels significantly better. Continued with a little bit of humidified air plan for some observation. Patient continues to feel well plan for DC home. Discussed recommendations from General surgery with the patient's family. Discharge Plan Departure Patient Disposition: Home Clinical Impression: Breathing difficulty, H/O laryngectomy Discharge Date/Time: 11/06/19 12:39 Activity Restrictions/Additional Instructions: Follow-up with your surgical team tomorrow at Dr. Castellanos's clinic 1:00 p.m. You had a very large plug in your stoma site that was causing your symptoms today. You should here from the office to confirm, if they have not called by 9:30 or 10am to call the office. Another option is to follow-up with ENT at 7:30 a.m. in the morning tomorrow although I would recommend following with the surgical team as they can to Kunal make sure the area is open. Your surgeon does recommend that you have scheduled cleaning or maintenance of your stoma site to maintain patency. Return to the ER for fevers greater than 100.4F, new or recurrent symptoms, shortness of breath, inability to breathe, lightheadedness, passing out, new chest pain, persistent vomiting, bleeding from your stoma or other new or concerning symptoms. Prescriptions: No Action Shingrix Adjuvant Component-PF suspension 0.5 ml IM ONCE Qty: 0.5 RF: 0 Adacel(Tdap Adolesn/Adult)(PF) 2 Lf-(2.5-5-3-5 mcg)-5Lf/0.5 mL suspension 0.5 ml IM ONCE Qty: 0.5 RF: 0 Prevnar 13 (PF) 0.5 mL syringe 0.5 ml IM ONCE Qty: 0.5 RF: 0 Referrals: Hillary Garnett DO [Primary Care Provider] -
[2019-11-06 11:01] VITALS: PULSE 87; RESP 24; O2SAT 100
[2019-11-06 11:04] LABS: Add Manual Diff / Slide Review NO; Basophils Absolute Auto 100 /uL (0-100); Basophils Percent Auto 0.7 % (0-2); Eosinophils Absolute Auto 0 /uL (0-450); Eosinophils Percent Auto 0.3 % (2-4); Hematocrit 35.7 % (41-53); Hemoglobin 11.8 g/dL (13.5-17.5); Lymphocytes Absolute Auto 500 /uL (1100-4500); Lymphocytes Percent Auto 3.9 % (25-40); Mean Corpuscular HGB Conc 33.2 % (30-36); Mean Corpuscular Hemoglobin 29.5 PG (26-34); Monocytes Absolute Auto 400 /uL (0-900); Monocytes Percent Auto 3.2 % (3-14); Neutrophils Absolute Auto 10900 /uL (1500-7000); Neutrophils Percent Auto 91.9 % (50-75); Platelet Count 287 X10^3/uL (150-400); Red Blood Cell Count 4.01 X10^6/uL (4.5-5.9); Red Cell Distribution Width 14.6 % (11.6-14.8); White Blood Cell Count 11.9 X10^3/uL (4.5-11.0)
[2019-11-06] MEDS: DEXAMETHASONE 10 MG/ML VIAL IV (11:04)
[2019-11-06] MEDS: SODIUM CHLORIDE 0.9% 1,000 ML 150 ML IV (11:04)
[2019-11-06 11:14] LABS: BUN Creatinine Ratio 11.3 (6-22); Blood Urea Nitrogen 17 mg/dL (9-20); Calcium 9.6 mg/dL (8.4-10.2); Carbon Dioxide 25 mmol/L (22-32); Chloride 103 mmol/L (98-107); Estimated Glomerular Filt Rate 45.5 mL/min (>60); Glucose 165 mg/dL (80-110); HEMOLYSIS < 15 (0-50); Magnesium 1.9 mg/dL (1.6-2.3); Potassium 4.1 mmol/L (3.4-5.1); Sodium 142 mmol/L (137-145)
--- NOTE | 2019-11-06 11:19 | PC.NURSE ---
1115 pt reports acute onset increased soa with increasing noise from upper airway, appears labored, Mank bedside
[2019-11-06 11:30] VITALS: BP 116/66; PULSE 98; RESP 25; O2SAT 99
[2019-11-06 11:32] LABS: Procalcitonin 0.06 ng/mL (<0.5)
[2019-11-06 11:50] VITALS: PULSE 130; RESP 14; O2SAT 100
[2019-11-06 12:00] VITALS: O2SAT 100
[2019-11-06 12:36] VITALS: BP 111/63; PULSE 83; RESP 19; O2SAT 100
== END 2019-11-06 12:39 | disposition home or self-care (01) ==
PROVIDERS: Emergency Provider Emergency Medicine; PCP Family Medicine
DX: R06.00 Dyspnea, unspecified (principal); R11.10 Vomiting, unspecified; Z90.02 Acquired absence of larynx; Z85.21 Personal history of malignant neoplasm of larynx; Z87.891 Personal history of nicotine dependence
CPT/HCPCS: 80048; 83735; 84145; 85025; 94640; 96361; 96374; 99281; 99284; J1100

== ENCOUNTER 2019-12-10 19:59 | Emergency (ER) | payer OTHER, MEDICARE, SELFPAY ==
--- NOTE | 2019-12-10 20:00 | DI.RAD.S_ITS ---
PROCEDURE: XR CHEST 1V INDICATIONS: dyspnea, wheezing, s/p tracheostomy TECHNIQUE: One view of the chest was acquired. COMPARISON: [facility], CR, XR CHEST 2V, 02/11/2019, 10:48. FINDINGS: Surgical changes and devices: Right chest port with the tip projecting in the lower SVC Lungs and pleura: Lungs are clear. No pleural effusions or pneumothorax. Mediastinum: Mediastinal contours appear normal. Heart size is normal. Bones and chest wall: No suspicious bony lesions. Overlying soft tissues appear unremarkable. IMPRESSION: No acute disease Dictated by: Fran Rodriguez M.D. on 12/10/2019 at 20:26 Approved by: Fran Rodriguez M.D. on 12/10/2019 at 20:27
[2019-12-10 20:01] VITALS: BP 178/92; PULSE 120; RESP 24; TEMP 36.7; O2SAT 98
--- NOTE | 2019-12-10 20:08 | ED_ITS ---
HPI - SOB/Dyspnea General Chief Complaint: Shortness of Breath/Dyspnea Stated Complaint: Difficulty Breathing Time Seen by Provider: 12/10/19 20:00 Source: patient Mode of arrival: Ambulatory Limitations: language barrier History of Present Illness HPI Narrative: 79-year-old gentleman presents to the emergency room complaining of difficulty breathing. He was seen on November 06 with similar complaints. Has history of laryngeal mass that has since been removed he has had both radiation and chemotherapy and states he is not currently having any additional cancer treatment. He does have a tracheostomy site a with a bit of discharge from the site and no hardware. He is not able to speak due to his surgery however he is awake alert and able to communicate very effectively with hands, body language and writing. From notes in October. He has had a complete laryngectomy. If in airway is needed an uncuffed 4-6 eyes trach tube was the recommendation. Apparently issue at that time was a large mucus plug. He did follow-up with his ENT physicians after that emergency room visit He denies fever. He notes that he has had a bit more cough slightly productive that has been coming out his tracheostomy site. He denies any chest pain, abdominal pain, lower extremity edema, orthopnea. No nausea, vomiting, diarrhea. When pressed for his actual reason for coming to the emergency room today he states that his trachea site ?is not good?. After suctioning by RT he is feeling significantly better and requests discharge home. When asked if he is able to suction himself at home he says that he has once but doesn't typically do that. Related Data Previous Rx's Medication Instructions Recorded adjuvant AS01B (PF)vial 1 of 2 0.5 ml IM ONCE #0.5 ml 03/09/19 diph,pertuss(acel),tet vac(PF) 0.5 ml IM ONCE #0.5 ml 03/09/19 pneumoc 13-ness conj-dip cr(PF) 0.5 0.5 ml IM ONCE #0.5 ml 03/09/19 mL IM syringe Allergies Allergy/AdvReac Type Severity Reaction Status Date / Time pollen extracts AdvReac Mild Verified 03/09/19 09:04 Review of Systems Review of Systems Narrative: Difficult to go through complete review as patient can't speak and responds nicely to yes no questions. Remainder of review is otherwise unremarkable Patient History Medical History Emphysema of lung (Acute) H/O intrinsic asthma (Acute) Squamous cell carcinoma of larynx (Acute) Family History Mother No problems noted. Father No problems noted. Social History Smoking Status: Former smoker Smoking Status: Former smoker Substance Use Type: does not use Exam Narrative Exam Narrative: General:in no acute distress. Tracheostomy site is open with a bit of debris around the edges he is unable to speak after laryngotomy. HEENT: Moist mucous membranes, normal sclera with reactive pupils, Neck: No JVD, supple. Trach site is patent minor debris around the edges Res piratory cleans the site up nicely Respiratory: Lungs are clear to auscultation, no wheezing no rales no rhonchi. Full and symmetrical air movement Cardiac: Regular rate and rhythm no murmurs no bruits Abdomen: Soft nontender good bowel tones, no flank pain Skin: Warm and dry, no rashes Neurologic: Grossly neurologically intact with no obvious asymmetries or abnormalities Extremities: No edema well perfused Psych: Appropriate affect and interaction Initial Vital Signs Initial Vital Signs: Vital Signs Temperature 98.0 F 12/10/19 20:01 Pulse Rate 120 H 12/10/19 20:01 Respiratory Rate 24 12/10/19 20:01 Blood Pressure 178/92 H 12/10/19 20:01 Pulse Oximetry 98 12/10/19 20:01 Course Orders Ordered: ED Orders 12/10/19 20:00 XR chest 1V Stat 12/10/19 20:01 Consult to Respiratory Therapy Evaluate & Treat 12/10/19 20:03 RT Consult Eval and Treat NOW 12/10/19 20:14 Complete Blood Count AUTO DIFF Stat Comprehensive Metabolic Panel Stat Lactate (Lactic Acid) Stat Magnesium Stat Procalcitonin Stat Troponin & CK Cardiac Panel Stat 12/10/19 20:15 EKG-12 Lead Stat 12/10/19 20:49 Sputum Induction and collectio NOW 12/10/19 20:50 Blood Culture Stat 12/10/19 21:09 Respiratory Panel (Film Array) Stat Discontinued Medications Albuterol/Ipratropium (Duoneb) 3 ml INH NOW ONE Stop: 12/10/19 20:01 Last Admin: 12/10/19 20:09 Dose: 3 ml Documented by: BELEM Albuterol/Ipratropium (Duoneb) 3 ml INH NOW ONE Stop: 12/10/19 20:02 Last Admin: 12/11/19 00:35 Dose: 3 ml Documented by: DEANN Methylprednisolone (Solu-Medrol 125 Mg Vial) 125 mg IV NOW ONE Stop: 12/10/19 20:02 Last Admin: 12/10/19 20:20 Dose: 125 mg Documented by: MARTIN Vital Signs Vital signs: Vital Signs - 8 hr 12/10/19 20:01 12/10/19 20:10 12/10/19 21:27 Temperature 98.0 F Pulse Rate 120 H 87 75 Respiratory Rate 24 24 19 Blood Pressure 178/92 H Blood Pressure [Left Arm] 178/92 H Pulse Oximetry 98 99 100 12/10/19 21:50 12/10/19 22:36 12/10/19 23:00 Temperature Pulse Rate 85 79 Respiratory Rate 15 Blood Pressure Blood Pressure [Left Arm] 136/60 127/60 Pulse Oximetry 100 99 97 12/11/19 00:00 12/11/19 00:35 12/11/19 00:39 Temperature Pulse Rate 101 H 91 H 95 H Respiratory Rate 22 20 16 Blood Pressure Blood Pressure [Left Arm] 110/77 123/64 Pulse Oximetry 98 96 97 12/11/19 01:26 12/11/19 02:16 Temperature Pulse Rate 90 96 H Respiratory Rate 16 18 Blood Pressure Blood Pressure [Left Arm] 112/62 126/62 Pulse Oximetry 96 97 MDM - SOB/Dyspnea Medical Records Attestation: I reviewed the patient's medical records. Lab Data Attestation: I reviewed the patient's lab results. Lab results narrative: Lactic acid was initially slightly elevated came down nicely with the simple L of fluid. No evidence of infection. Result diagrams: 12/10/19 20:14 12/10/19 20:14 Labs: Lab Results 12/10/19 12/10/19 12/10/19 Range/Units 20:14 20:14 20:14 WBC 5.5 (4.5-11.0) X10^3/uL RBC 4.28 L (4.5-5.9) X10^6/uL Hgb 12.6 L (13.5-17.5) g/dL Hct 37.2 L (41-53) % MCV 86.9 (80-100) fL MCH 29.3 (26-34) PG MCHC 33.8 (30-36) % RDW 14.3 (11.6-14.8) % Plt Count 201 (150-400) X10^3/uL Neut % (Auto) 72.9 (50-75) % Lymph % (Auto) 15.7 L (25-40) % [place] % (Auto) 8.0 (3-14) % Eos % (Auto) 2.6 (2-4) % Baso % (Auto) 0.8 (0-2) % Neut # (Auto) 4000 (9342-9936) /uL Lymph # (Auto) 900 L (6277-4460) /uL [place] # (Auto) 400 (0-900) /uL Eos # (Auto) 100 (0-450) /uL Baso # (Auto) 0 (0-100) /uL Sodium (137-145) mmol/L Potassium (3.4-5.1) mmol/L Chloride (98-107) mmol/L Carbon Dioxide (22-32) mmol/L BUN (9-20) mg/dL Creatinine (0.66-1.25) mg/dL Estimated GFR (>60) mL/min BUN/Creatinine Ratio (6-22) Glucose (80-110) mg/dL Lactate (0.7-2.1) mmol/L Calcium (8.4-10.2) mg/dL Magnesium 2.0 (1.6-2.3) mg/dL Total Bilirubin (0.2-1.3) mg/dL AST (17-59) IU/L ALT (<50) IU/L Alkaline Phosphatase (38-126) U/L Total Creatine Kinase 45 L (55-170) U/L CK-MB (CK-2) TNP CK-MB (CK-2) Rel Index TNP Troponin I 0.018 (0.01-0.034) ng/mL Total Protein (6.3-8.2) g/dL Albumin (3.5-5.0) g/dL Globulin (1.7-4.1) g/dL Albumin/Globulin Ratio (1.0-2.8) Procalcitonin 0.11 (<0.5) ng/mL Chlamy pneumoniae PCR (Not Detect) Adenovirus (PCR) (Not Detect) B.parapertussis DNA PCR (Not Detect) Coronavirus OC43 (PCR) (Not Detect) Coronavirus HKU1 (PCR) (Not Detect) Coronavirus 229E (PCR) (Not Detect) Coronavirus NL63 (PCR) (Not Detect) Human Metapneumovir PCR (Not Detect) Influenza Type A (PCR) (Not Detect) Influenza Type B (PCR) (Not Detect) M. pneumoniae (PCR) (Not Detect) Parainfluenza 1 (PCR) (Not Detect) Parainfluenza 2 (PCR) (Not Detect) Parainfluenza 3 (PCR) (Not Detect) Parainfluenza 4 (PCR) (Not Detect) RSV (PCR) (Not Detect) Entero/Rhino (PCR) (Not Detect) 12/10/19 12/10/19 12/10/19 Range/Units 20:14 20:14 21:09 WBC (4.5-11.0) X10^3/uL RBC (4.5-5.9) X10^6/uL Hgb (13.5-17.5) g/dL Hct (41-53) % MCV (80-100) fL MCH (26-34) PG MCHC (30-36) % RDW (11.6-14.8) % Plt Count (150-400) X10^3/uL Neut % (Auto) (50-75) % Lymph % (Auto) (25-40) % [place] % (Auto) (3-14) % Eos % (Auto) (2-4) % Baso % (Auto) (0-2) % Neut # (Auto) (4102-9966) /uL Lymph # (Auto) (5529-9677) /uL [place] # (Auto) (0-900) /uL Eos # (Auto) (0-450) /uL Baso # (Auto) (0-100) /uL Sodium 140 (137-145) mmol/L Potassium 3.7 (3.4-5.1) mmol/L Chloride 98 (98-107) mmol/L Carbon Dioxide 28 (22-32) mmol/L BUN 21 H (9-20) mg/dL Creatinine 1.30 H (0.66-1.25) mg/dL Estimated GFR 53.5 L (>60) mL/min BUN/Creatinine Ratio 16.2 (6-22) Glucose 124 H (80-110) mg/dL Lactate 3.0 H (0.7-2.1) mmol/L Calcium 9.6 (8.4-10.2) mg/dL Magnesium (1.6-2.3) mg/dL Total Bilirubin 0.8 (0.2-1.3) mg/dL AST 28 (17-59) IU/L ALT 15 (<50) IU/L Alkaline Phosphatase 115 (38-126) U/L Total Creatine Kinase (55-170) U/L CK-MB (CK-2) CK-MB (CK-2) Rel Index Troponin I (0.01-0.034) ng/mL Total Protein 8.0 (6.3-8.2) g/dL Albumin 4.5 (3.5-5.0) g/dL Globulin 3.5 (1.7-4.1) g/dL Albumin/Globulin Ratio 1.3 (1.0-2.8) Procalcitonin (<0.5) ng/mL Chlamy pneumoniae PCR Not detected (Not Detect) Adenovirus (PCR) Not detected (Not Detect) B.parapertussis DNA PCR Not detected (Not Detect) Coronavirus OC43 (PCR) Not detected (Not Detect) Coronavirus HKU1 (PCR) Not detected (Not Detect) Coronavirus 229E (PCR) Not detected (Not Detect) Coronavirus NL63 (PCR) Not detected (Not Detect) Human Metapneumovir PCR Not detected (Not Detect) Influenza Type A (PCR) Not detected (Not Detect) Influenza Type B (PCR) Not detected (Not Detect) M. pneumoniae (PCR) Not detected (Not Detect) Parainfluenza 1 (PCR) Not detected (Not Detect) Parainfluenza 2 (PCR) Not detected (Not Detect) Parainfluenza 3 (PCR) Not detected (Not Detect) Parainfluenza 4 (PCR) Not detected (Not Detect) RSV (PCR) Not detected (Not Detect) Entero/Rhino (PCR) Not detected (Not Detect) 12/10/19 Range/Units 22:30 WBC (4.5-11.0) X10^3/uL RBC (4.5-5.9) X10^6/uL Hgb (13.5-17.5) g/dL Hct (41-53) % MCV (80-100) fL MCH (26-34) PG MCHC (30-36) % RDW (11.6-14.8) % Plt Count (150-400) X10^3/uL Neut % (Auto) (50-75) % Lymph % (Auto) (25-40) % [place] % (Auto) (3-14) % Eos % (Auto) (2-4) % Baso % (Auto) (0-2) % Neut # (Auto) (8214-7340) /uL Lymph # (Auto) (2285-0865) /uL [place] # (Auto) (0-900) /uL Eos # (Auto) (0-450) /uL Baso # (Auto) (0-100) /uL Sodium (137-145) mmol/L Potassium (3.4-5.1) mmol/L Chloride (98-107) mmol/L Carbon Dioxide (22-32) mmol/L BUN (9-20) mg/dL Creatinine (0.66-1.25) mg/dL Estimated GFR (>60) mL/min BUN/Creatinine Ratio (6-22) Glucose (80-110) mg/dL Lactate 1.1 (0.7-2.1) mmol/L Calcium (8.4-10.2) mg/dL Magnesium (1.6-2.3) mg/dL Total Bilirubin (0.2-1.3) mg/dL AST (17-59) IU/L ALT (<50) IU/L Alkaline Phosphatase (38-126) U/L Total Creatine Kinase (55-170) U/L CK-MB (CK-2) CK-MB (CK-2) Rel Index Troponin I (0.01-0.034) ng/mL Total Protein (6.3-8.2) g/dL Albumin (3.5-5.0) g/dL Globulin (1.7-4.1) g/dL Albumin/Globulin Ratio (1.0-2.8) Procalcitonin (<0.5) ng/mL Chlamy pneumoniae PCR (Not Detect) Adenovirus (PCR) (Not Detect) B.parapertussis DNA PCR (Not Detect) Coronavirus OC43 (PCR) (Not Detect) Coronavirus HKU1 (PCR) (Not Detect) Coronavirus 229E (PCR) (Not Detect) Coronavirus NL63 (PCR) (Not Detect) Human Metapneumovir PCR (Not Detect) Influenza Type A (PCR) (Not Detect) Influenza Type B (PCR) (Not Detect) M. pneumoniae (PCR) (Not Detect) Parainfluenza 1 (PCR) (Not Detect) Parainfluenza 2 (PCR) (Not Detect) Parainfluenza 3 (PCR) (Not Detect) Parainfluenza 4 (PCR) (Not Detect) RSV (PCR) (Not Detect) Entero/Rhino (PCR) (Not Detect) ECG Data Attestation: I personally reviewed and interpreted this ECG as follows: Interpretation: Normal sinus rhythm at a rate of [address] T wave changes no acute ischemia MDM Narrative Medical decision making narrative: Patient presents with some debris and discharge collecting in his trach site. Communication is challenging as he is unable to speak and writing is slow and laborious. Labs are reassuring and as best I can tell I believe this gentleman simply came in for trach site care and help with clearing a bit of discharge from the tracheal site. This being accomplished, he is awake alert oxygenating well no evidence of acute coronary syndrome, pneumonia, upper respiratory infection and appropriate for home discharge Discharge Plan Departure Patient Disposition: Home Clinical Impression: Tracheostomy care Activity Restrictions/Additional Instructions: Thank you for coming in today. After trach site was clean there is no significant suggestion of pneumonia or asthma exacerbation. Your labs were reassuring. Please follow-up with your primary care doctor to see if there are options that might be available to you at home so the ear able to do a bit more sectioning and deep suctioning of the tracheostomy site so that you are more comfortable and we can avoid further emergency room visits If you feel like you're getting worse or having difficulty with breathing it is very appropriate to come back to the emergency room. I hope you are feeling better Prescriptions: No Action Shingrix Adjuvant Component-PF suspension 0.5 ml IM ONCE Qty: 0.5 RF: 0 Adacel(Tdap Adolesn/Adult)(PF) 2 Lf-(2.5-5-3-5 mcg)-5Lf/0.5 mL suspension 0.5 ml IM ONCE Qty: 0.5 RF: 0 Prevnar 13 (PF) 0.5 mL syringe 0.5 ml IM ONCE Qty: 0.5 RF: 0 Referrals: Hillary Garnett DO [Primary Care Provider] -
[2019-12-10] MEDS: ALBUTEROL/IPRATROPIUM 3 ML AMPUL INH (20:09)
[2019-12-10 20:10] VITALS: PULSE 87; RESP 24; O2SAT 99
[2019-12-10] MEDS: methylPREDNISolone 125 MG/2 ML VIAL IV (20:20)
[2019-12-10 20:30] LABS: Add Manual Diff / Slide Review NO; Basophils Absolute Auto 0 /uL (0-100); Basophils Percent Auto 0.8 % (0-2); Eosinophils Absolute Auto 100 /uL (0-450); Eosinophils Percent Auto 2.6 % (2-4); Hematocrit 37.2 % (41-53); Hemoglobin 12.6 g/dL (13.5-17.5); Lymphocytes Absolute Auto 900 /uL (1100-4500); Lymphocytes Percent Auto 15.7 % (25-40); Mean Corpuscular HGB Conc 33.8 % (30-36); Mean Corpuscular Hemoglobin 29.3 PG (26-34); Mean Corpuscular Volume 86.9 fL (80-100); Monocytes Absolute Auto 400 /uL (0-900); Neutrophils Absolute Auto 4000 /uL (1500-7000); Neutrophils Percent Auto 72.9 % (50-75); Platelet Count 201 X10^3/uL (150-400); Red Blood Cell Count 4.28 X10^6/uL (4.5-5.9); Red Cell Distribution Width 14.3 % (11.6-14.8); White Blood Cell Count 5.5 X10^3/uL (4.5-11.0)
[2019-12-10 20:38] LABS: Alanine Aminotransferase 15 IU/L (<50); Albumin 4.5 g/dL (3.5-5.0); Albumin Globulin Ratio 1.3 (1.0-2.8); Alkaline Phosphatase 115 U/L (38-126); Aspartate Aminotransferase 28 IU/L (17-59); BUN Creatinine Ratio 16.2 (6-22); Bilirubin Total 0.8 mg/dL (0.2-1.3); Blood Urea Nitrogen 21 mg/dL (9-20); Calcium 9.6 mg/dL (8.4-10.2); Carbon Dioxide 28 mmol/L (22-32); Chloride 98 mmol/L (98-107); Creatine Kinase 45 U/L (55-170); Estimated Glomerular Filt Rate 53.5 mL/min (>60); Globulin 3.5 g/dL (1.7-4.1); Glucose 124 mg/dL (80-110); HEMOLYSIS < 15 (0-50); Potassium 3.7 mmol/L (3.4-5.1); Sodium 140 mmol/L (137-145)
[2019-12-10 20:50] LABS: Troponin I 0.018 ng/mL (0.01-0.034)
[2019-12-10 21:20] LABS: Procalcitonin 0.11 ng/mL (<0.5)
[2019-12-10 21:27] VITALS: BP 178/92; PULSE 75; RESP 19; O2SAT 100
[2019-12-10 21:50] VITALS: O2SAT 100
[2019-12-10 22:21] LABS: Reflexed Lactate in 2 Hours Y
[2019-12-10 22:34] LABS: Adenovirus Not Detected (Not Detect); Bordetella pertussis Not Detected (Not Detect); Chlamydophila pneumoniae Not Detected (Not Detect); Coronavirus 229E Not Detected (Not Detect); Coronavirus HKU1 Not Detected (Not Detect); Coronavirus NL 63 Not Detected (Not Detect); Coronavirus OC43 Not Detected (Not Detect); Human Metapneumovirus Not Detected (Not Detect); Human Rhinovirus/Enterovirus Not Detected (Not Detect); Influenza A Not Detected (Not Detect); Influenza B Not Detected (Not Detect); Mycoplasma pneumoniae Not Detected (Not Detect); Parainfluenza Virus 1 Not Detected (Not Detect); Parainfluenza Virus 2 Not Detected (Not Detect); Parainfluenza Virus 3 Not Detected (Not Detect); Parainfluenza Virus 4 Not Detected (Not Detect); Respiratory Syncytial Virus Not Detected (Not Detect)
[2019-12-10 22:36] VITALS: BP 136/60; PULSE 85; RESP 15; O2SAT 99
[2019-12-10 22:44] LABS: Lactate 2HR (Lactic Acid Rflx) 1.1 mmol/L (0.7-2.1)
[2019-12-10 23:00] VITALS: BP 127/60; PULSE 79; O2SAT 97
[2019-12-11] VITALS: BP 110/77; PULSE 101; RESP 22; O2SAT 98
--- NOTE | 2019-12-11 00:10 | PC.NURSE ---
0010 hrs: Stridorous respirations audible. RT informed. RN with Pt until RT arrives.
[2019-12-11 00:35] VITALS: PULSE 91; RESP 20; O2SAT 96
[2019-12-11] MEDS: ALBUTEROL/IPRATROPIUM 3 ML AMPUL INH (00:35)
[2019-12-11 00:39] VITALS: BP 123/64; PULSE 95; RESP 16; O2SAT 97
[2019-12-11 01:26] VITALS: BP 112/62; PULSE 90; RESP 16; O2SAT 96
[2019-12-11 02:16] VITALS: BP 126/62; PULSE 96; RESP 18; O2SAT 97
== END 2019-12-11 02:25 | disposition home or self-care (01) ==
PROVIDERS: Nurse Practitioner Family; Emergency Provider Emergency Medicine; PCP Family Medicine
DX: Z43.0 Encounter for attention to tracheostomy (principal); Z90.02 Acquired absence of larynx; R06.00 Dyspnea, unspecified
CPT/HCPCS: 36415; 71045; 80053; 82550; 83605; 83735; 84145; 84484; 85025; 87040; 87633; 93005; 93010; 94640; 94799; 96374; 99284; 99285; J2930

== ENCOUNTER 2019-12-12 19:12 | Emergency (ER) | payer OTHER, MEDICARE, SELFPAY ==
[2019-12-12 19:13] VITALS: BP 159/86; PULSE 104; RESP 20; O2SAT 98
[2019-12-12] MEDS: ALBUTEROL/IPRATROPIUM 3 ML AMPUL INH (19:40)
--- NOTE | 2019-12-12 20:10 | ED.URI ---
HPI - URI/Sore Throat General Chief Complaint: Upper Respiratory Symptoms Stated Complaint: Can't Breath Time Seen by Provider: 12/12/19 19:51 Source: patient and family Mode of arrival: Ambulatory Limitations: no limitations History of Present Illness HPI Narrative: The patient has a history of laryngeal cancer, he underwent total laryngectomy about 1 year ago. He is still under care by the ENT physicians associated with [facility], he was seen there regularly. The laryngectomy tube has been changed periodically. He pulled the tube 2 days ago because of congestion, he was having difficulty breathing. Removing the tube apparently originally helped, but he comes here now due to difficulty breathing. He is coughing up thick phlegm. He has no purulent phlegm. He is having trouble clearing his airways. He has no fever or chills. He denies chest pain. After discussing the case with ENT, Dr. Raman, the ENT surgeon is aware of this patient. The patient has required attention previously due to airway obstruction due to thick phlegm. Related Data Previous Rx's Medication Instructions Recorded adjuvant AS01B (PF)vial 1 of 2 0.5 ml IM ONCE #0.5 ml 03/09/19 diph,pertuss(acel),tet vac(PF) 0.5 ml IM ONCE #0.5 ml 03/09/19 pneumoc 13-ness conj-dip cr(PF) 0.5 0.5 ml IM ONCE #0.5 ml 03/09/19 mL IM syringe Allergies Allergy/AdvReac Type Severity Reaction Status Date / Time pollen extracts AdvReac Mild Verified 12/12/19 19:31 Review of Systems Review of Systems ROS Unobtainable: All systems reviewed & are unremarkable except as noted in HPI and below Constitutional Constitutional: Denies chills, Reports fatigue, Denies fever(s) and Denies frequent falls ENT Ears, Nose, Mouth, and Throat: Denies dizziness, Denies neck pain and Denies sore throat Cardiovascular Cardiovascular: Denies chest pain, Denies palpitations, Reports dyspnea and Reports orthopnea Respiratory Respiratory: Denies cough, Reports dyspnea and Denies wheezing Gastrointestinal Gastrointestinal: Denies abdominal pain, Denies change in bowel habits, Denies diarrhea, Denies nausea and Denies vomiting Musculoskeletal Musculoskeletal: Denies back pain and Denies neck pain Integumentary/Breasts Skin/Breast: Denies pruritus, Denies erythema, Denies rash and Denies wounds Neurologic Neurologic: Denies behavioral changes, Denies confusion, Denies dizziness and Denies frequent falls Psychiatric Psychiatric: Denies behavioral changes and Denies confusion Endocrine Endocrine: Reports fatigue and Denies palpitations Allergic/Immunologic Allergic/Immunologic: Denies wheezing Patient History Medical History (Updated 12/13/19 @ 00:32 by Silviano Rod MD) Emphysema of lung (Acute) H/O intrinsic asthma (Acute) Squamous cell carcinoma of larynx (Acute) Surgical History (Updated 12/13/19 @ 00:32 by Silviano Rod MD) H/O laryngectomy (Acute) Family History Mother No problems noted. Father No problems noted. Social History Smoking Status: Former smoker Smoking Status: Former smoker Substance Use Type: does not use Exam Initial Vital Signs Initial Vital Signs: Vital Signs Pulse Rate 104 H 12/12/19 19:13 Respiratory Rate 20 12/12/19 19:13 Blood Pressure 159/86 H 12/12/19 19:13 Pulse Oximetry 98 12/12/19 19:13 Const General: cooperative and well developed Nutritional Appearance: well nourished [facility] Head: normocephalic and atraumatic Mouth: oral mucosae normal and moist mucous membranes Throat: posterior oropharynx normal and uvula midline Eyes General: appearance normal, both eyes and all related structures Eyelids: eyelids normal Conjunctivae: conjunctivae normal Sclera: sclerae normal Pupils: PERRL EOM: EOM intact bilaterally Neck Other: The patient has a stoma from the prior laryngectomy. The tube was out this time. The patient is coughing, there is thick, brown exudate notable in the tube. Part of the tear was suction. Chest Chest: normal inspection of the chest Resp Effort & Inspection: normal respiratory effort and able to speak in complete sentences Auscultation: clear to auscultation bilaterally Cardio Rate: regular rate Rhythm: regular rhythm Heart Sounds: S1 normal and S2 normal GI Inspection: non-distended Palpation: soft and no hepatosplenomegaly Auscultation: normal bowel sounds Back/Spine/Pelvis Back: normal to inspection Skin General: no rashes or lesions noted Neuro General: alert, oriented x3, gait normal and no focal motor deficits Speech: speech normal Course Course Course Narrative: I do not have access to laryngoscopy tube. A 6 mm trach tube was placed. A little pressure was required, the tube is stiff compared to the laryngoscopy tube. The patient noted improved breathing. He was still coughing, there was still notable thick phlegm. RT continue to manage his airway. Missed was utilized. Suction was applied repeatedly. I was called urgently to the room because the patient could no longer breathe. He passed out. The airway was cooked extracted, there was a thick wall them totally obstructing the trach tube. The patient was resuscitated with BVM applied to the stoma site. He quickly resolved, and noted he had improved. Re-examining the airway, the thick exudate was gone. He was breathing without cough. I consulted with ENT, Dr. Raman. The patient was scoped, noting his airway is clear to the cali. There is no exudate, foreign body, or mass. Options were discussed with ENT. The trach tube I have available to me seems to have a little excessive curve for a comfortable fit. He is breathing very well without a tube in place at this time. He will be discharged home, and advised to follow-up with his ENT surgeon at [facility] tomorrow, Dr. Escalante. Dr. Raman has agreed to see the patient any time in ENT clinic locally. Orders Ordered: ED Orders 12/12/19 20:32 Tracheostomy Assessment NEEDED 12/12/19 21:20 XR chest 1V Stat 12/12/19 22:15 Complete Blood Count AUTO DIFF Stat Comprehensive Metabolic Panel Stat Prothrombin Time INR Stat Sodium Chloride (Normal Saline 0.9%) 1,000 mls @ 150 mls/hr IV CONT JUAN Last Admin: 12/12/19 22:32 Dose: 150 mls/hr Documented by: BERTRAND Vital Signs Vital signs: Vital Signs - 8 hr 12/12/19 19:13 12/12/19 20:16 12/12/19 20:45 Pulse Rate 104 H 104 H 110 H Respiratory Rate 20 23 26 H Blood Pressure 159/86 H Blood Pressure [Right Arm] 155/70 H 166/102 H Pulse Oximetry 98 96 96 12/12/19 21:14 12/12/19 22:32 12/12/19 23:45 Pulse Rate 95 H 76 71 Respiratory Rate 13 20 15 Blood Pressure Blood Pressure [Right Arm] 119/63 112/55 L 112/55 L Pulse Oximetry 91 100 100 MDM - URI/Sore Throat Lab Data Result diagrams: 12/12/19 22:15 12/12/19 22:15 Labs: Lab Results 12/12/19 12/12/19 12/12/19 Range/Units 22:15 22:15 22:15 WBC 11.1 H (4.5-11.0) X10^3/uL RBC 4.15 L (4.5-5.9) X10^6/uL Hgb 12.1 L (13.5-17.5) g/dL Hct 36.0 L (41-53) % MCV 86.6 (80-100) fL MCH 29.1 (26-34) PG MCHC 33.6 (30-36) % RDW 14.3 (11.6-14.8) % Plt Count 225 (150-400) X10^3/uL Neut % (Auto) 90.4 H (50-75) % Lymph % (Auto) 3.0 L (25-40) % [place] % (Auto) 6.5 (3-14) % Eos % (Auto) 0.0 L (2-4) % Baso % (Auto) 0.1 (0-2) % Neut # (Auto) 31534 H (3487-6189) /uL Lymph # (Auto) 300 L (9160-5251) /uL [place] # (Auto) 700 (0-900) /uL Eos # (Auto) 0 (0-450) /uL Baso # (Auto) 0 (0-100) /uL PT 12.4 (10.1-12.7) SECONDS INR 1.1 (0.9-1.3) Sodium 140 (137-145) mmol/L Potassium 4.5 (3.4-5.1) mmol/L Chloride 99 (98-107) mmol/L Carbon Dioxide 28 (22-32) mmol/L BUN 28 H (9-20) mg/dL Creatinine 1.20 (0.66-1.25) mg/dL Estimated GFR 58.7 L (>60) mL/min BUN/Creatinine Ratio 23.3 H (6-22) Glucose 137 H (80-110) mg/dL Calcium 9.6 (8.4-10.2) mg/dL Total Bilirubin 0.7 (0.2-1.3) mg/dL AST 39 (17-59) IU/L ALT 19 (<50) IU/L Alkaline Phosphatase 106 (38-126) U/L Total Protein 7.9 (6.3-8.2) g/dL Albumin 4.5 (3.5-5.0) g/dL Globulin 3.4 (1.7-4.1) g/dL Albumin/Globulin Ratio 1.3 (1.0-2.8) Imaging Data Chest x-ray: Radiologist's Impression: [address] [address] XRay Report Signed Patient: Joon Ervin WMR#: [id number] : 3Acct:[id number] Age/Sex: 79 / MDate of Service: 12/12/19 Loc: ED Accession Number: [id number] Procedure: XR chest 1V Ordering Provider: Silviano Rod MD PROCEDURE: XR CHEST 1V INDICATIONS: H/O lung cancer. Trach replaced. Thick airway secretions. TECHNIQUE: One view of the chest was acquired. COMPARISON: Outside Film, CT, CT CHEST ABDOMEN PELVIS WITH CONTRAST, 02/20/2019, 9:47. [facility], CR, XR CHEST 2V, 02/11/2019, 10:48. [facility], CR, XR CHEST 1 VIEW, 05/23/2019, 13:52. [facility], CR, XR CHEST 1V, 12/10/2019, 20:02. FINDINGS: Surgical changes and devices: There is a right-sided chest port is seen, with the tip within the inferior aspect of the superior vena cava, as before. The tracheostomy tube is seen, which is midline. Lungs and pleura: Lungs are clear. No pleural effusions or pneumothorax. Mediastinum: Mediastinal contours appear normal. Heart size is normal. Bones and chest wall: No suspicious bony lesions. Overlying soft tissues appear unremarkable. IMPRESSION: Unremarkable tracheostomy by plain film. The tip of the right-sided chest port is seen overlying the inferior aspect of the superior vena cava, as before. Dictated by: Gabriel Marks M.D. on 12/12/2019 at 21:48 Approved by: Gabriel Marks M.D. on 12/12/2019 at 21:49 Discharge Plan Departure Patient Disposition: Home Clinical Impression: Breathing difficult, History of laryngectomy, History of laryngeal cancer Activity Restrictions/Additional Instructions: Follow-up with your ENT doctor as [facility], Dr. Escalante. You need to have the appropriate airway tube placed. Dr. Raman has agreed to let you follow up in the local ENT clinic for evaluation as needed. I will give you his contact information. Return the ER as needed. Prescriptions: No Action Shingrix Adjuvant Component-PF suspension 0.5 ml IM ONCE Qty: 0.5 RF: 0 Adacel(Tdap Adolesn/Adult)(PF) 2 Lf-(2.5-5-3-5 mcg)-5Lf/0.5 mL suspension 0.5 ml IM ONCE Qty: 0.5 RF: 0 Prevnar 13 (PF) 0.5 mL syringe 0.5 ml IM ONCE Qty: 0.5 RF: 0 Referrals: Allan Raman MD [Physician] - Hillary Garnett DO [Primary Care Provider] -
[2019-12-12 20:16] VITALS: BP 155/70; PULSE 104; RESP 23; O2SAT 96
[2019-12-12 20:45] VITALS: BP 166/102; PULSE 110; RESP 26; O2SAT 96
[2019-12-12 21:14] VITALS: BP 119/63; PULSE 95; RESP 13; O2SAT 91
--- NOTE | 2019-12-12 21:20 | DI.RAD.S_ITS ---
PROCEDURE: XR CHEST 1V INDICATIONS: H/O lung cancer. Trach replaced. Thick airway secretions. TECHNIQUE: One view of the chest was acquired. COMPARISON: Outside Film, CT, CT CHEST ABDOMEN PELVIS WITH CONTRAST, 02/20/2019, 9:47. [facility], CR, XR CHEST 2V, 02/11/2019, 10:48. [facility], CR, XR CHEST 1 VIEW, 05/23/2019, 13:52. [facility], CR, XR CHEST 1V, 12/10/2019, 20:02. FINDINGS: Surgical changes and devices: There is a right-sided chest port is seen, with the tip within the inferior aspect of the superior vena cava, as before. The tracheostomy tube is seen, which is midline. Lungs and pleura: Lungs are clear. No pleural effusions or pneumothorax. Mediastinum: Mediastinal contours appear normal. Heart size is normal. Bones and chest wall: No suspicious bony lesions. Overlying soft tissues appear unremarkable. IMPRESSION: Unremarkable tracheostomy by plain film. The tip of the right-sided chest port is seen overlying the inferior aspect of the superior vena cava, as before. Dictated by: Gabriel Marks M.D. on 12/12/2019 at 21:48 Approved by: Gabriel Marks M.D. on 12/12/2019 at 21:49
--- NOTE | 2019-12-12 21:42 | PC.NURSE ---
respiratory therapy at bedside. nurse responded to respiratory therapy calling for help. patient noted to be cyanotic and bradycardic. provider called to bedside. patient suctioned and BVM applied to stoma. breaths administered and patients color and heart rate improved. left ac 20G IV placed. spontaneous respirations returned and patient breathing on his own and non labored.
[2019-12-12 22:31] LABS: Add Manual Diff / Slide Review NO; Basophils Absolute Auto 0 /uL (0-100); Basophils Percent Auto 0.1 % (0-2); Eosinophils Absolute Auto 0 /uL (0-450); Hemoglobin 12.1 g/dL (13.5-17.5); Lymphocytes Absolute Auto 300 /uL (1100-4500); Mean Corpuscular HGB Conc 33.6 % (30-36); Mean Corpuscular Hemoglobin 29.1 PG (26-34); Mean Corpuscular Volume 86.6 fL (80-100); Monocytes Absolute Auto 700 /uL (0-900); Monocytes Percent Auto 6.5 % (3-14); Neutrophils Absolute Auto 10000 /uL (1500-7000); Neutrophils Percent Auto 90.4 % (50-75); Platelet Count 225 X10^3/uL (150-400); Red Blood Cell Count 4.15 X10^6/uL (4.5-5.9); Red Cell Distribution Width 14.3 % (11.6-14.8); White Blood Cell Count 11.1 X10^3/uL (4.5-11.0)
[2019-12-12 22:32] VITALS: BP 112/55; PULSE 76; RESP 20; O2SAT 100
[2019-12-12 22:32] LABS: INR 1.1 (0.9-1.3); Prothrombin Time 12.4 SECONDS (10.1-12.7)
[2019-12-12] MEDS: SODIUM CHLORIDE 0.9% 1,000 ML 150 ML IV (22:32)
[2019-12-12 22:37] LABS: Alanine Aminotransferase 19 IU/L (<50); Albumin 4.5 g/dL (3.5-5.0); Albumin Globulin Ratio 1.3 (1.0-2.8); Alkaline Phosphatase 106 U/L (38-126); Aspartate Aminotransferase 39 IU/L (17-59); BUN Creatinine Ratio 23.3 (6-22); Bilirubin Total 0.7 mg/dL (0.2-1.3); Blood Urea Nitrogen 28 mg/dL (9-20); Calcium 9.6 mg/dL (8.4-10.2); Carbon Dioxide 28 mmol/L (22-32); Chloride 99 mmol/L (98-107); Estimated Glomerular Filt Rate 58.7 mL/min (>60); Globulin 3.4 g/dL (1.7-4.1); Glucose 137 mg/dL (80-110); HEMOLYSIS < 15 (0-50); Potassium 4.5 mmol/L (3.4-5.1); Sodium 140 mmol/L (137-145); Total Protein 7.9 g/dL (6.3-8.2)
[2019-12-12 23:45] VITALS: BP 112/55; PULSE 71; RESP 15; O2SAT 100
[2019-12-13 00:48] VITALS: BP 117/63; PULSE 75; RESP 17; O2SAT 100
== END 2019-12-13 00:48 | disposition home or self-care (01) ==
PROVIDERS: Emergency Provider Emergency Medicine; PCP Family Medicine
DX: R06.89 Other abnormalities of breathing (principal); Z90.02 Acquired absence of larynx; Z85.21 Personal history of malignant neoplasm of larynx
CPT/HCPCS: 31500; 36415; 71045; 80053; 85025; 85610; 94799; 99284